=== PATIENT | male | born 1950 | race Caucasian/White ===

== ENCOUNTER 2017-02-15 10:31 | Emergency (ER) | payer OTHER ==
[2017-02-15 11:35] VITALS: BP 132/71
--- NOTE | 2017-02-15 11:49 | RAD ---
Indication: RIGHT humerus pain post fall 10 days ago. History of stroke. Comparison: No relevant prior exams available on the [facility] PACS for comparison. Technique: AP and lateral views RIGHT humerus. Report: Mild impaction fracture at the surgical neck of the humerus with discrete cortical step-off conspicuous on the AP view. Unremarkable articular alignment throughout the [id number]. Progressive patchy osteoporosis and muscle atrophy. IMPRESSION: Subacute impaction fracture at the surgical neck of the humerus. Predisposing decreased bone density. Consider dedicated RIGHT shoulder exam for complete assessment.
--- NOTE | 2017-02-15 12:52 | UC ---
I, James,Susan, scribed for Obdulio Nieves MD on 02/15/17 at 1153 . Upper Extremity HPI - HPI Summary HPI Summary: This 66 y/o male presents to [facility] for persistent RUE arm pain since a fall 10 days ago. Positive ecchymosis over RUE humerus. Negative pain at wrist or elbow. PMHx includes CVA with residual right sided weakness. Pt is left hand dominant. He is cane dependent for ambulation. He is not diabetic, and not on blood thinner. - History of Current Complaint Chief Complaint: UCUpperExtremity Stated Complaint: ARM INJURY Hx Obtained From: Patient, Family/[employer]ing [employer] Operator - present, Medical Records ?: No Onset/Duration: Lasting Days, Still Present Location Of Pain: Is Discrete @ - RUE hand - Allergies/Home Medications Allergies/Adverse Reactions: Allergies Allergy/AdvReac Type Severity Reaction Status Date / Time No Known Allergies Allergy Verified 02/15/17 10:37 Home Medications: Home Medications Lactobacillus [Probiotic] 1 cap PO DAILY 02/15/17 [History Confirmed 02/15/17] PMH/Surg Hx/FS Hx/Imm Hx Cardiovascular History: Other Other Cardiovascular History: Heart murmur Neurological History: CVA Other History Of: Negative For: Anticoagulant Therapy - Surgical History Surgical History: None - Family History Known Family History: Positive: Other - Positive Colon CA - Social History Alcohol Use: Occasionally Alcohol Amount: 1 glass of wine a day Substance Use Type: None Smoking Status (MU): Former Smoker Type: Cigars Amount Used/How Often: 6 cigars Length of Time of Smoking/Using Tobacco: 40 years - Immunization History Most Recent Influenza Vaccination: unsure Most Recent Tetanus Shot: unknown Most Recent Pneumonia Vaccination: Unsure Review of Systems Constitutional: Negative Skin: Bruising - RUE Eyes: Negative ENT: Negative Respiratory: Negative Cardiovascular: Negative Gastrointestinal: Negative Genitourinary: Negative Motor: Negative Neurovascular: Negative Musculoskeletal: Other: - RUE pain Neurological: Negative Psychological: Negative All Other Systems Reviewed And Are Negative: Yes Physical Exam Triage Information Reviewed: Yes Vital Signs: Initial Vital Signs Temp 97.9 F 02/15/17 10:40 Pulse 68 02/15/17 10:40 Resp 16 02/15/17 10:40 Pulse Ox 98 02/15/17 10:40 Vital Signs Reviewed: Yes - Additional Comments The patient is well-nourished in no acute distress and in no acute pain. The skin is noted with ecchymosis on RUE upper arm over humerus. Superficial laceration HEENT: The head is normocephalic and atraumatic. The pupils are equal and reactive. The conjunctivae are clear and without drainage. Nares are patent and without drainage. Mouth reveals moist mucous membranes and the throat is without erythema and exudate. The external ears are intact. The ear canals are patent and without drainage. The tympanic membranes are intact. Neck is supple with full range of motion and non-tender. There are no carotid bruits. There is no neck vein distension. Respiratory: Chest is non-tender. Lungs are clear to auscultation and breath sounds are symmetrical and equal. Cardiovascular: Hear is regular rate and rhythm. There is no murmur or rub auscultated. There is no peripheral edema and pulses are symmetrical and equal. Abdomen: The abdomen is soft and non-tender. There are normal bowel sounds heard in all four quadrants and there is no organomegaly palpated. Musculoskeletal: There is no back pain noted. Limited ROM of RUE. There is good capillary refill. No swelling or tenderness at elbow or shoulder. Tender of RUE humerus. Neurological: Patient is alert and oriented to person, place and time. The patient has symmetrical motor strength in all four extremities. Cranial nerves are grossly intact. Deep tendon reflexes are symmetrical and equal in all four extremities. Psychiatric: The patient has an appropriate affect and does not exhibit any anxiety or depression. Diagnostics - Radiology RUE Humerus Xray Interpretation: Positive (See Comments) - Subacute impaction fracture at the surgical neck of the humerus. Predisposing decreased bone density. Consider dedicated RIGHT shoulder exam for complete assessment. Radiology Interpretation Completed By: Radiologist Re-Evaluation - Re-Evaluation First Eval Re-Evaluation Time: 12:12 Comment: Pt and present at bedside is updated with X-ray imaging results. Upper Extremity Course/Dx - Differential Dx/Diagnosis Differential Diagnosis/HQI/PQRI: Contusion, Fracture (Closed), Hematoma Provider Diagnoses: 1) Right humeral fracture, subacute Discharge - Discharge Plan Condition: Stable Disposition: HOME Patient Education Materials: Arm Fracture in Adults (ED) Referrals: Amanda Gibson MD [Primary Care Provider] - Barbi Agee MD [Medical Doctor] - 2 Days The documentation as recorded by the scribe, Susan Ramirez accurately reflects the service I personally performed and the decisions made by me, Obdulio Nievse MD.
== END 2017-02-15 12:23 | disposition home or self-care (01) ==
LOC: UCEAST 10:31
DX: S42.201A Unspecified fracture of upper end of right humerus, initial encounter for closed fracture (principal); W19.XXXA Unspecified fall, initial encounter; I69.351 Hemiplegia and hemiparesis following cerebral infarction affecting right dominant side; Z87.891 Personal history of nicotine dependence
CPT/HCPCS: 99211; G0463